=== PATIENT | male | born 1950 | race Caucasian/White ===

== ENCOUNTER 2018-01-13 09:00 | Day surgery (SDC) | payer OTHER, BC ==
[~2018-01-13] VITALS: Ht 180.3 cm; Wt 89.4 kg
[~2018-01-13 09:00] MED LIST: ALLEGRA ALLERG180 MG PO; ASCORBIC ACID500 M3 PO; ASPIR 8181 M1 PO; FLONASE16 G1 BOTH NARES; LIPITOR10 MG PO; NORVASC5 MG PO; PROTONIX40 MG PO; VITAMIN B COMP1 EACH PO
[2018-01-13 09:30] VITALS: BP 123/80
[2018-01-13 14:52] VITALS: BP 116/68
[2018-01-13 15:52] VITALS: BP 116/65
[2018-01-13 17:54] VITALS: BP 123/71
[2018-01-13 20:50] VITALS: BP 129/72
== END 2018-01-13 21:24 | disposition home or self-care (01) ==
LOC: SDC 09:00
PROC: 01NB0ZZ Release Lumbar Nerve, Open Approach (ICD-10-PCS; principal; 2018-01-13)
DX: M47.26 Other spondylosis with radiculopathy, lumbar region (principal); M48.061 Spinal stenosis, lumbar region without neurogenic claudication; M43.16 Spondylolisthesis, lumbar region; G89.29 Other chronic pain; M54.5 Low back pain; I10 Essential (primary) hypertension; K21.9 Gastro-esophageal reflux disease without esophagitis; N40.1 Benign prostatic hyperplasia with lower urinary tract symptoms; N13.8 Other obstructive and reflux uropathy; Z79.82 Long term (current) use of aspirin; Z87.891 Personal history of nicotine dependence
CPT/HCPCS: 72020; 76000; J0690; J1100; J1170; J2250; J2405; J2765; J2930; J3010; S0020